=== PATIENT | male | born 1955 | race Two or more races ===

== ENCOUNTER 2024-03-27 08:31 | Inpatient (IN) | payer MEDICARE, OTHER ==
[~2024-03-27] VITALS: Ht 182.9 cm; Wt 33.9 kg
[2024-03-27] VITALS (54 sets, daily range): BP systolic 63–146; BP diastolic 40–120; TEMP 96.2–98.2; O2SAT 50–98
[2024-03-27] MEDS ORDERED: VANC250C12 GT (08:52)
[2024-03-27] MEDS ORDERED: ASCO-352 GT (08:52)
[2024-03-27] MEDS ORDERED: L. A1TAB10 GT (08:52)
[2024-03-27] MEDS ORDERED: NUTR150016 GT (08:52)
[2024-03-27] MEDS ORDERED: AMIN30LI66 GT (08:52)
[2024-03-27] MEDS ORDERED: ACET-2030 GT (08:52)
[2024-03-27] MEDS ORDERED: ACET-868 GT ×2 (08:52)
[2024-03-27] MEDS ORDERED: MULT-619 GT (08:52)
[2024-03-27] MEDS ORDERED: ZINC50TA69 GT (08:52)
[2024-03-27] MEDS ORDERED: COLL30OI TP (08:53)
[2024-03-27] MEDS: IV NS 0.9% 1,000 ML BAG IV ONE (08:58)
[2024-03-27] MEDS: CEFEPIME 1 GM in IV D5W 50 ML IV ONE (09:00)
[2024-03-27] MEDS: VANCOMYCIN 1 GM in IV D5W 250 ML IV ONE (09:00)
[2024-03-27] MEDS: METRONIDAZOLE 500MG/ NS 100ML 100 ML IV ONE (09:00)
[2024-03-27 09:11] LABS: BASOPHILS % (AUTO) 0.3 % (0.0-2.0); EOSINOPHILS % (AUTO) 0.2 % (0.0-6.0); HEMATOCRIT 44 % (39-51); HEMOGLOBIN 13.7 g/dL (13.5-17.5); LYMPHOCYTES # (AUTO) 1.2 K/uL (0.8-4.8); LYMPHOCYTES % (AUTO) 6.6 % (20.0-44.0); MEAN CORPUSCULAR HEMOGLOBIN 31 PG (26.0-33.0); MEAN CORPUSCULAR HGB CONC 31 g/dl (31.0-36.0); MEAN CORPUSCULAR VOLUME 98 fL (80-96); MONOCYTES # (AUTO) 0.7 K/uL (0.1-1.30); MONOCYTES % (AUTO) 3.8 % (2.0-12.0); NEUTROPHILS # (AUTO) 15.5 K/uL (1.8-8.9); NEUTROPHILS % (AUTO) 89.1 % (43.0-81.0); PLATELET COUNT (AUTO) 496 K/uL (150-450); RED BLOOD CELL COUNT(AUTO) 4.45 MIL/uL (4.5-6.0); RED CELL DISTRIBUTION WIDTH 17.2 % (11.5-15.0); WHITE BLOOD COUNT (AUTO) 17.5 K/uL (4.3-11.0)
[2024-03-27 09:21] LABS: CARBON DIOXIDE 13 mmol/L (21-32); CHLORIDE 116 mmol/L (98-107); CREATININE 2.6 mg/dL (0.6-1.3); GLUCOSE 354 mg/dL (74-106); SODIUM SERUM 148 mmol/L (136-145)
[2024-03-27 09:22] LABS: CALCIUM, SERUM 5.8 mg/dL (8.5-10.1); POTASSIUM 6.2 mmol/L (3.5-5.1); UREA NITROGEN, BLOOD 122 mg/dL (7-18)
[2024-03-27 09:27] LABS: ALANINE AMINOTRANSFERASE 22 U/L (12-78); ALKALINE PHOSPHATASE 83 U/L (46-116); ASPARTATE AMINOTRANSFERASE 13 U/L (15-37); BILIRUBIN,DIRECT 0.2 mg/dL (0.0-0.2); BILIRUBIN,TOTAL 0.4 mg/dL (0.2-1.0); TOTAL PROTEIN, SERUM 3.6 g/dL (6.4-8.2)
[2024-03-27 09:28] LABS: INR 1.31 (0.91-1.10); PARTIAL THROMBOPLASTIN TIME 35.3 SEC (24.3-34.3); PROTHROMBIN TIME 13.6 SECS (9.2-11.1)
[2024-03-27 09:29] LABS: ALBUMIN 0.9 g/dL (3.4-5.0)
[2024-03-27] MEDS ORDERED: DEXTROSE 50%-WATER 50 ML DISP.SYRIN IV ONE (09:30)
[2024-03-27 09:34] LABS: LACTIC ACID 13.7 mmol/L (0.4-2.0)
[2024-03-27] MEDS ORDERED: SODIUM BICARBONATE SYR 50 MEQ/50 ML DISP.SYRIN ONE (09:40)
[2024-03-27] MEDS ORDERED: INSULIN REGULAR, HUMAN 100 UNIT/ML 10 ML VIAL ONE (09:41)
[2024-03-27] MEDS ORDERED: CALCIUM CHLORIDE 1,000 MG/10 ML DISP.SYRIN ONE (09:41)
[2024-03-27] MEDS ORDERED: ALBUTEROL FS 2.5 MG/3 ML VIAL.NEB ONE (09:43)
[2024-03-27] MEDS: ALBUTEROL FS 2.5 MG/3 ML VIAL.NEB NEB ONE (09:59)
[2024-03-27] MEDS: INSULIN REGULAR, HUMAN 100 UNIT/ML 10 ML VIAL IV ONE ×2 (10:00→23:01)
[2024-03-27] MEDS: SODIUM BICARBONATE SYR 50 MEQ/50 ML DISP.SYRIN IV ONE ×3 (10:00→18:02)
[2024-03-27] MEDS: CALCIUM CHLORIDE 1,000 MG/10 ML DISP.SYRIN IV ONE (10:00)
[2024-03-27] MEDS: AMIODARONE 150 MG in IV D5W 100 ML IV ONE (10:10)
[2024-03-27] MEDS ORDERED: AMIODARONE 150 MG/3 ML VIAL IV ONE (10:11)
[2024-03-27] MEDS: AMIODARONE 450 MG in IV D5W 250 ML IV ONE (10:30)
[2024-03-27] MEDS ORDERED: VANCOMYCIN 1 GM in IV D5W 250 ML IV ONE (11:00)
[2024-03-27] MEDS ORDERED: ONDANSETRON HCL/PF 4 MG/2 ML VIAL IVP PRN (11:00)
[2024-03-27] MEDS ORDERED: INSULIN REGULAR, HUMAN 100 UNIT in IV NS 0.9% 99 ML IV PRN (11:00)
[2024-03-27] MEDS ORDERED: PHENYLEPHRINE 50 MG in IV NS 0.9% 245 ML IV PRN (11:00)
[2024-03-27] MEDS ORDERED: ACETAMINOPHEN 650 MG/SUPP.RECT RC PRN (11:00)
[2024-03-27] MEDS ORDERED: VANCOMYCIN 1 GM /D5W 250 ML PB IV ONE (11:05)
[2024-03-27] MEDS: AMIODARONE 450 MG in IV D5W 241 ML IV PRN (11:38)
[2024-03-27] MEDS: IV NS 0.9% 1,000 ML IV PRN (12:28)
[2024-03-27] MEDS: PIPERACILLIN /TAZOBACTAM 3.375 G in IV D5W 50 ML IV SCH (12:49)
[2024-03-27] MEDS ORDERED: VANCOMYCIN 500 MG in IV D5W 100ml IV ONE (13:00)
[2024-03-27] MEDS: INSULIN REGULAR, HUMAN 100 UNIT in IV NS 0.9% 99 ML IV PRN (13:24)
[2024-03-27 13:25] LABS: CALCIUM, SERUM 7.3 mg/dL (8.5-10.1); CREATININE 2.4 mg/dL (0.6-1.3)
[2024-03-27 13:32] LABS: POTASSIUM 6.6 mmol/L (3.5-5.1)
[2024-03-27 13:58] LABS: APPEARANCE,URINE CLEAR (CLEAR); BILIRUBIN,URINE 2+ (NEGATIVE); BLOOD, URINE 1+ Ery/uL (NEGATIVE); COLOR,URINE AMBER (YELLOW); KETONES,URINE TRACE mg/dL (NEGATIVE); PH,URINE 5.5 (5.0-8.0); PROTEIN,URINE 1+ mg/dl (NEGATIVE); UGLUCOSE TRACE mg/dL (NEGATIVE)
[2024-03-27 13:59] LABS: LEUKOCYTE ESTERASE ,URINE NEGATIVE (NEGATIVE); NITRITE, URINE POSITIVE (NEGATIVE)
[2024-03-27 14:00] LABS: ADD URINE CULTURE YES; BACTERIA,URINE Moderate /HPF (None Seen); SQUAMOUS EPITHELIAL CELL,UR None Seen /HPF (None Seen); WBC,URINE 0-2 /HPF (0-3)
[2024-03-27] MEDS: PHENYLEPHRINE 50 MG in IV NS 0.9% 245 ML IV PRN ×2 (14:02→18:10)
[2024-03-27] MEDS: HYDROCORTISONE SOD SUCCINATE 100 MG/2 ML VIAL IV SCH (15:19)
[2024-03-27] MEDS ORDERED: HEPARIN SODIUM, PORCINE 5000 UNITS/1 ML VIAL IV SCH (17:00)
[2024-03-27 17:28] LABS: CALCIUM, SERUM 7.7 mg/dL (8.5-10.1); CREATININE 2.8 mg/dL (0.6-1.3)
[2024-03-27] MEDS: HEPARIN SODIUM, PORCINE 5000 UNITS/1 ML VIAL SQ SCH (17:33)
[2024-03-27] MEDS: METRONIDAZOLE 500MG/ NS 100ML 500 MG in PREMIX 1 EA IV SCH (17:34)
[2024-03-27 17:39] LABS: POTASSIUM 7.9 mmol/L (3.5-5.1)
[2024-03-27] MEDS ORDERED: Sodium Bicarbonate 150 MEQ in IV D5W 1,000 ML IV PRN (18:30)
[2024-03-27] MEDS: MORPHINE SULFATE INJ 2 MG/ML DISP.SYRIN IV PRN (18:34)
[2024-03-27] MEDS: Sodium Bicarbonate 150 MEQ in IV D5W 1,000 ML IV SCH (19:11)
[2024-03-27] MEDS: BLOOD SUGAR DIAGNOSTIC 1 EACH STRIP IN SCH (19:11)
[2024-03-27 22:06] LABS: CALCIUM, SERUM 7.8 mg/dL (8.5-10.1)
[2024-03-27 22:08] LABS: POTASSIUM 8.6 mmol/L (3.5-5.1)
[2024-03-27] MEDS: Calcium Gluconate 0.465 MEQ/ML VIAL IV ONE (22:59)
[2024-03-27] MEDS: DEXTROSE 50%-WATER 50 ML DISP.SYRIN IVP ONE (23:02)
[2024-03-27] MEDS: DEXTROSE 50%-WATER 50 ML DISP.SYRIN ONE (23:20)
[2024-03-28] VITALS: BP 92/48; TEMP 98; O2SAT 71; O2SAT 85
[2024-03-28 00:15] VITALS: BP 75/41; O2SAT 88
[2024-03-28 00:30] VITALS: BP 76/41; O2SAT 88
[2024-03-28 00:45] VITALS: BP 73/41; O2SAT 88
[2024-03-28 01:00] VITALS: BP 73/42; O2SAT 88
[2024-03-28 01:15] LABS: CREATININE 3.2 mg/dL (0.6-1.3)
[2024-03-28 01:20] VITALS: O2SAT 88
[2024-03-28 01:45] LABS: POTASSIUM 9.4 mmol/L (3.5-5.1)
[2024-03-28] MEDS ORDERED: PANTOPRAZOLE 40 MG VIAL IV SCH (09:00)
[2024-03-28] MEDS ORDERED: VANCOMYCIN 750 MG in IV D5W 250 ML IV SCH (13:00)
[2024-03-28] MEDS ORDERED: VANCOMYCIN 500 MG in IV D5W 100ml IV SCH (21:00)
== END 2024-03-28 03:21 | DRG 871 ==
LOC: ER 08:46 → ICU 11:21
PROVIDERS: ADMIT Internal Medicine; ATTEND Internal Medicine
PROC: 02HV33Z Insertion of Infusion Device into Superior Vena Cava, Percutaneous Approach (ICD-10-PCS; principal; 2024-03-27)
PROC: B548ZZA Ultrasonography of Superior Vena Cava, Guidance (ICD-10-PCS; 2024-03-27)
DX: A41.9 Sepsis, unspecified organism (principal); E11.10 Type 2 diabetes mellitus with ketoacidosis without coma; J69.0 Pneumonitis due to inhalation of food and vomit; R65.21 Severe sepsis with septic shock; N17.0 Acute kidney failure with tubular necrosis; J96.01 Acute respiratory failure with hypoxia; G92.8 Other toxic encephalopathy; A04.72 Enterocolitis due to Clostridium difficile, not specified as recurrent; Z68.1 Body mass index [BMI] 19.9 or less, adult; E86.0 Dehydration; E87.5 Hyperkalemia; I48.91 Unspecified atrial fibrillation; R13.10 Dysphagia, unspecified; R62.7 Adult failure to thrive; Z87.891 Personal history of nicotine dependence; I10 Essential (primary) hypertension; Z66 Do not resuscitate; Z74.01 Bed confinement status; Z93.1 Gastrostomy status; F03.90 Unspecified dementia, unspecified severity, without behavioral disturbance, psychotic disturbance, mood disturbance, and anxiety
CPT/HCPCS: 36415; 36600; 71045-TC; 80048-TC; 80076-TC; 81001; 82803-TC; 82962-TC; 83605-TC; 84484-TC; 85025-TC; 85730-TC; 87040-TC; 87081-TC; 87086-TC; 94762-TC; 94799-TC; A4216; A4223; G0378; J0282; J0610; J0692; J1644; J1720; J1815; J2270; J2543; J3370; J3371; J3490; J7030; J7050; J7060; J7070